=== PATIENT | female | born 1965 | race Two or more races ===

== ENCOUNTER 2025-04-10 23:42 | Emergency (ER) | payer OTHER, SELFPAY ==
[2025-04-10 23:43] VITALS: BMI 23.5
[2025-04-10 23:49] VITALS: BP 109/67; PULSE 83; RESP 18; TEMP 36.7; O2SAT 97
--- NOTE | 2025-04-10 23:53 | XR_ITS ---
Examination: CT abdomen and pelvis without contrast. Coronal 3-D reconstructions. Sagittal 2-D reconstructions. Date and time of exam: April 11, 2025, 0003 hours INDICATIONS: Left lower abdominal pain onset today CTDI: vol (mGy): 6.19 DLP: (mGycm): 344 Technique: Axial images of the abdomen have been obtained, 3 mm slice thickness Intravenous contrast material has not been administered. Low dose protocols were performed. One or more of the following dose reduction techniques were used; automated exposure control, adjustment of the mA and/or KV according to patient size, use of iterative reconstruction technique. Findings: No visualized liver or splenic lesion No gallstones No pancreatic edema Normal adrenal glands No renal or ureteral calculi, no hydronephrosis Aorta normal size Normal appendix No bowel obstruction or diverticulitis Urinary bladder intact Osseous structures intact IMPRESSION: No acute process in the abdomen or pelvis The urinary bladder is contracted which likely accounts for the minimal wall thickening
--- NOTE | 2025-04-11 01:09 | PRELIM_ITS ---
CT scan of the abdomen and pelvis without intravenous contrast (axial sections with sagittal and coronal reformats) April 11, 2025 0003 hours Clinical History: Abdominal pain Comparison: None Findings: The liver, gallbladder, pancreas, spleen, kidneys and adrenals are unremarkable on this noncontrast study. No evidence of renal/ureteric calculus or hydroureteronephrosis. The stomach is distended with food residue. No evidence of bowel obstruction. The appendix is within normal limits (images [id number]). A moderate amount of fecal material is present in the colon. There is no mesenteric or retroperitoneal adenopathy. The abdominal aorta is unremarkable. The urinary bladder is partially distended and shows mild wall thickening; possibility of cystitis cannot be excluded. The uterus and adnexa are unremarkable. There is no free fluid or free air. Mild degenerative changes are identified in the spine. Bibasilar dependent atelectasis is present. Please note that evaluation of soft tissue/vascular structures and bowel loops is limited due to absence of IV and oral contrast. Impression: 1. No evidence of acute pancreatitis. 2. Partially distended urinary bladder with mild wall thickening; possibility of cystitis cannot be excluded. 3. Other findings as described above. Suggest clinical correlation and follow up accordingly. Report Electronically Signed By: Rodger Mcdonald 04/11/2025 1:08:41 AM [EST]
[2025-04-11 01:18] LABS: Basophils # (Auto) 0.1 Thou/mm3 (0.0-0.2); Basophils % (Auto) 1 % (0-2.5); Eosinophils # (Auto) 0.3 Thou/mm3 (0.0-0.5); Eosinophils % (Auto) 4 % (0-10); Hematocrit 39.0 % (36.0-46.0); Hemoglobin 12.9 g/dL (12.0-16.0); Immature Granulocytes Auto 0.02 Thou/mm3 (0.00-0.00); Lymphocytes # (Auto) 3.4 Thou/mm3 (1.0-4.8); Lymphocytes % (Auto) 41 % (10-50); Mean Corpuscular HGB Conc 33.1 g/dl (31.0-37.0); Mean Corpuscular Hemoglobin 29.5 pg (25.0-35.0); Mean Corpuscular Volume 89 fL (80-100); Monocytes # (Auto) 0.5 Thou/mm3 (0.0-0.8); Monocytes % (Auto) 6 % (0-12); Neutrophils # (Auto) 4.0 Thou/mm3 (1.8-7.7); Neutrophils % (Auto) 48 % (37-80); Nucleated Red Blood Cell # 0.00 Thou/mm3 (0.00-0.00); Nucleated Red Blood Cell % 0 /100 WBC (0); Platelet Count 252 Thou/mm3 (140-440); RDW Standard Deviation 43.2 fL (36.4-46.3); Red Blood Count 4.38 Miln/mm3 (4.00-5.20); White Blood Count 8.2 Thou/mm3 (3.6-11.0)
[2025-04-11 01:32] LABS: Alanine Aminotransferase 21 U/L (10-49); Albumin, Serum 4.6 gm/dL (3.5-5.0); Albumin/Globulin Ratio 2.0 (1.2-2.2); Alkaline Phosphatase 87 U/L (46-116); Anion Gap 10 (7-16); Aspartate Amino Transferase 17 U/L (0-34); BUN/Creatinine Ratio 18 Ratio (12-20); Bilirubin,Total 0.3 mg/dL (0.3-1.2); Blood Urea Nitrogen 14 mg/dL (9-23); Calcium 9.5 mg/dL (8.3-10.6); Calcium (Corrected) 9.5 mg/dL (8.5-10.1); Carbon Dioxide 27.2 mMol/L (20.0-31.0); Chloride 107 mMol/L (98-107); Creatinine (Component) 0.8 mg/dL (0.6-1.3); Estimated Creatinine Clearance 65.4 mL/min (>60); Globulin 2.3 gm/dL (2.3-3.5); Glucose 134 mg/dL (74-106); Lipase 42 U/L (12-53); Osmolality,Calculated 289 (275-295); Potassium 3.6 mMol/L (3.4-5.1); Sodium 144 mMol/L (136-145); Total Protein 6.9 gm/dL (5.7-8.2); eGFR > 60 See Note
[2025-04-11 01:33] LABS: Collection Type, Urine Clean Catch
[2025-04-11 01:44] LABS: HCG Qualitative,Urine Negative
[2025-04-11 01:48] LABS: Amorphous Crystals,Urine Present (Absent); Bilirubin,Urine Negative (Negative); Blood,Urine Negative (Negative); Budding Yeast,Urine Present; Clarity,Urine Turbid (Clear/Hazy); Color,Urine Yellow (Lt Yel-Yel); Glucose, Urine Negative (Negative); Ketones,Urine Negative (Negative); Leukocyte Esterase,Urine Positive (Negative); Nitrite,Urine Negative (Negative); PH,Urine 7.5 (5.0-7.0); Protein,Urine Negative (Neg - Trace); RBC,Urine 9 /hpf (0-3); Specific Gravity,Urine 1.020 (1.001-1.035); Squamous Epithelial Cell,Urine 1 /hpf (0-5); Urobilinogen,Urine Negative mg/dL (0.0-1.0); WBC,Urine 44 /hpf (0-5)
[2025-04-11 02:02] VITALS: BP 91/58; PULSE 73; RESP 18; TEMP 36.7; O2SAT 96
--- NOTE | 2025-04-11 02:26 | EDNOTE_ITS ---
ED Abdominal Pain RME/HPI General Chief Complaint: Abdominal Pain Stated complaint: LEFT LOWER ABD TO RADIATES TO UPPER ABD Time seen by provider: 04/10/25 23:47 Arrival date/time: 04/10/25 23:42 This is a case of 60-year-old female who came in in the emergency room due to left-sided abdominal pain for 1 day associated with nausea and vomiting worsening of the symptoms this patient decided to sought consult here in the emergency room denies constipation diarrhea denies blood in stool denies fever or chills Limitations: no limitations Related Data Previous Rx's ?Medication ?Instructions ?Recorded cephalexin 500 mg capsule 500 mg PO QID #40 caps 04/11 ibuprofen 800 mg tablet 800 mg PO Q8H PRN pain #20 t abs 04/11/25 ondansetron 4 mg disintegrating 4 mg PO Q8H #20 tabs 1 06/12/24 tablet Allergies Allergy/AdvReac Type Severity Reaction Status Date / Time No Known Allergies Allergy Verified 04/10/25 23:43 Review of Systems Review of Systems Systems Reviewed: All systems reviewed, normal except as documented Constitutional Constitutional: Reports system reviewed and no additional complaints, except as documented and Reports as per HPI Cardiovascular Cardiovascular: Reports system reviewed and no additional complaints, except as documented and Reports as per HPI Respiratory Respiratory: Reports system reviewed and no additional complaints, except as documented and Reports as per HPI Gastrointestinal Gastrointestinal: Reports system reviewed and no additional complaints, except as documented and Reports as per HPI Musculoskeletal Musculoskeletal: Reports system reviewed and no additional complaints, except as documented and Reports as per HPI Neurologic Neurologic: Reports system reviewed and no additional complaints, except as documented and Reports as per HPI Past Medical History Social History SMOKING STATUS: Current every day smoker ED Exam General Limitations: Present no limitations General appearance: Present alert, in no apparent distress and other (Patient is awake alert oriented not in distress nontoxic looking well-hydrated well- nourished) Head Head exam: Present atraumatic, normocephalic and normal inspection Eye Eye exam: Present normal appearance, PERRL and EOMI ENT ENT exam: Present normal exam, normal oropharynx and mucous membranes moist Neck Neck exam: Present normal inspection, full ROM and trachea midline; Absent tenderness, meningismus, lymphadenopathy or thyromegaly Chest Chest inspection: Present normal inspection and symmetric chest wall rise; Absent tenderness Respiratory Respiratory exam: Present normal lung sounds bilaterally; Absent respiratory distress, wheezes, stridor, accessory muscle use or prolonged expiratory phase Cardiovascular Cardiovascular exam: Present regular rate, normal rhythm and normal heart sounds; Absent bradycardia, tachycardia, irregular rhythm, systolic murmur or diastolic murmur Abdominal Exam Abdominal exam: Present soft, tenderness (Mild tenderness on the left lower quadrant but no guarding no rebound no rigidity no bladder distention no tenderness) and normal bowel sounds; Absent distention, guarding, rebound, rigidity, diminished bowel sounds, hyperactive bowel sounds, hypoactive bowel sounds, organomegaly, psoas sign, obturator sign, Baxter's sign, Rovsing's sign, tenderness at McBurney's Point, ascites or hernia Extremities Exam Extremities exam: Present normal inspection and full ROM Back Exam Back exam: Present normal inspection and full ROM Neurological Exam Neurological exam: Present alert, oriented X3, CN II-XII intact, normal gait and reflexes normal; Absent motor sensory deficit Psychiatric Psychiatric exam: Present normal affect and normal mood Skin Skin exam: Present warm, dry, intact, normal color and other (Excellent skin turgor) Course Quality Measures none Orders Category Date Time Status CT abdomen pelvis wo con Stat Exams 04/10/25 23:53 Taken CBC Stat Lab 04/10/25 23:53 Completed Comprehensive Metabolic Panel Stat Lab 04/10/25 23:53 Completed HCG Qualitative,Urine Stat Lab 04/11/25 01:13 Completed Lipase Stat Lab 04/10/25 23:53 Completed Urinalysis Stat Lab 04/11/25 01:13 Completed HYDROcodone*/APAP 5/325 [[place] 5/325] Med 04/11/25 02:22 Once 1 tab PO X1 ONE Ondansetron Odt [Zofran Odt] Med 04/11/25 02:22 Once 4 mg PO X1 ONE cefTRIAXone [Rocephin] 2 gm Med 04/11/25 02:22 Ordered SODIUM CHLORIDE 0.9% ([place]) [Ns 0.9% (P)] 50 ml IV X1 Vital Signs Vital signs: Vital Signs Temperature 98.1 F 04/10/25 23:49 Pulse Rate 83 04/10/25 23:49 Respiratory Rate 18 04/10/25 23:49 Blood Pressure 109/67 04/10/25 23:49 Pulse Oximetry (%) 97 04/10/25 23:49 Oxygen Delivery Method Room Air 04/10/25 23:49 Oxygen saturation is 97% in room air Abdominal Pain MDM MDM Narrative MDM Narrative:: This is a case of 60-year-old female who came in in the emergency room due to left-sided abdominal pain for 1 day associated with nausea and vomiting worsening of the symptoms this patient decided to sought consult here in the emergency room denies constipation diarrhea denies blood in stool denies fever or chills physical examination patient is awake alert oriented not in distress nontoxic looking well-hydrated well nourished excellent skin turgor abdominal exam is benign nonsurgical no guarding no rebound no rigidity mild tenderness on the left lower quadrant but no guarding no rebound no rigidity negative psoas negative straight or negative Rovsing's negative McBurney's negative Baxter sign negative CVA tenderness bladder is not distended nontender at the time of exam vital signs stable BP stable not tachycardic not tachypneic afebrile and nonhypoxic no signs and symptoms of sepsis no signs and symptoms of dehydration no signs and symptoms of hypoxia or acute abdomen patient blood test showed no leukocytosis no anemia kidney and liver function is normal no electrolyte im balance lipase is normal urinalysis showed WBC in the urine suggestive of urinary tract infection CT scan of the abdomen were unremarkable except that the urinary bladder is partially distended and shows mild wall thickening possible cystitis at this point patient will be treated as urinary tract infection and cystitis patient was given ceftriaxone IM here in the emergency room [place] for pain and Zofran for nausea vomiting patient was also discharged with cephalexin for UTI ibuprofen for pain and Zofran for nausea and vomiting he she was advised to follow-up with PCP in 2 days for reevaluation and to be referred to urologist for cystitis and for any worsening symptoms and emergent concern return precaution in the ER is advised Patient was discharged with comfortable condition walking with stable gait. Patient verbalized no further complains explained diagnosis and answered patient question. Patient is comfortable with the proposed management plan including the need to follow up with his/her primary care physician and any specialist if applicable Discussed patient for any urgent condition or worsening sx, He/She needed to go to emergency room immediately or call 911. Patient acknowledge the responsibility to follow up as instructed and to monitor her/his symptoms. For any persistence of the symptoms for more than 3-5 days return precaution advised. Discussed the result of the test and was given printed discharge instruction Patient data External records reviewed:: [facility] previous records Clinical information provided by:: patient Social determinants that could affect healthcare access:: none Patient has the following chronic illnesses:: None How is presenting disease/condition affected by chronic disease/condition?: no chronic disease Evaluation data The following diagnostics were reviewed and interpreted by me:: lab results and radiology exam(s) Lab and/or radiology exams considered but not ordered:: Reviewed Interpretation Summary: Reviewed Medications / Prescriptions Medications or Prescriptions considered but not ordered:: Given Medication administrations:: Medication Administration History Hydrocodone Bitart/Acetaminophen (Hydrocodone/[place] 5/325 Tablet) 1 tab PO X1 ONE Stop: 04/11/25 02:23 Ceftriaxone Sodium 2 gm/ (Sodium Chloride) 50 mls @ 100 mls/hr IV X1 ONE Stop: 04/11/25 02:51 Ondansetron HCl (Ondansetron Odt 4 Mg Tabrap) 4 mg PO X1 ONE; Protocol Stop: 04/11/25 02:23 Given Consultations Consultation(s) initiated? (list below): No Diagnosis Differential diagnosis abdominal pain: abdominal pain, acute appendicitis, calculus of kidney, diverticulitis, gastroenteritis, pancreatitis, small bowel obstruction and other (Urinary tract infection) Most likely diagnosis given after review of the tests above:: Urinary tract infection cystitis Admission Indicated Admission indicated?: not indicated Explain why admission is indicated or not indicated:: Not indicated Admission Request Was there a request for admission?: No Admission Attestation Admission request attestation: Not indicated Disposition Plan Disposition Plan: Discharge Discharge Attestation Discharge Attestation: The patient and all family members were given an opportunity to ask questions and understood the discharge instructions. Discharge instructions specifically effects, indications for sooner follow up or return to the emergency department, and the expected course of current diagnosis. Patient condition: Stable Discharge Plan Plan Patient Disposition: HOME (Self Care) Patient condition on transfer: Stable Prescriptions/Referrals Prescriptions/Med Rec: New cephalexin 500 mg capsule 500 mg PO QID Qty: 40 0RF ibuprofen 800 mg tablet 800 mg PO Q8H PRN (Reason: pain) Qty: 20 0RF ondansetron 4 mg tablet,disintegrating 4 mg PO Q8H Qty: 20 0RF Referrals: Venita Guerrero FNP [Primary Care Provider] - In 1 week Problem List Clinical Impression: Abdominal pain, Urinary tract infection, Cystitis Patient/Caregiver Discharge Instructions Education Materials: Abdominal Pain, Urinary Tract Infections in Women, ED CYSTITIS Female Adult Additional Instructions: Follow-up with your primary care physician in 2 days for reevaluation and to be referred to urologist for further evaluation and treatment of cystitis recurrence persistent worsening symptoms or any emergent concern call 911 or go to the nearest emergency room take your medication as directed finish the course of antibiotic increase water intake keep hydrated Pedialyte Gatorade for hydration is advised Print Language: Turkish Stand Alone Forms: Yolie Award Info., Patient Portal Info Letter PA/LIFT TEAM TECHNICIAN Supervising Physician PA/LIFT TEAM TECHNICIAN Supervising Physician: Dr. Hartmann
[2025-04-11] MEDS: ONDANSETRON ODT 4 MG TABRAP PO (02:40)
[2025-04-11] MEDS: HYDROcodone/APAP 5/325 TABLET 1 TAB PO (02:40)
[2025-04-11 03:00] VITALS: BP 108/64; PULSE 72; RESP 18; TEMP 36.9; O2SAT 100
[2025-04-11] MEDS: cefTRIAXone 2 GM in SODIUM CHLORIDE 0.9% (Popper) 50 ML IV (03:04)
[2025-04-11] MEDS: SODIUM CHLORIDE 0.9% 1000 ML 1,000 ML 999 ML IV (03:04)
== END 2025-04-11 04:18 | disposition home or self-care (01) ==
PROVIDERS: Nurse Practitioner Family; Emergency Provider Emergency Medicine; PCP Nurse Practitioner Family
DX: N30.90 Cystitis, unspecified without hematuria (principal); R10.32 Left lower quadrant pain
CPT/HCPCS: 36415; 74176; 80053; 81001; 81025; 83690; 85025; 96365; 99283; J0696; J7030; J7050; Q0162; A9270